=== PATIENT | male | born 1995 | race Caucasian/White ===

== ENCOUNTER → 2016-09-28 | Outpatient (CLI) | payer MEDICAID ==
[2016-09-28 10:14] LABS: HEMATOCRIT 40.4 % (37.9-51.0); HEMOGLOBIN 13.5 g/dL (13.5-17.0); HGB HCT DIFFERENCE 0.1; MEAN CORPUSCULAR HEMOGLOBIN 28.6 pg (27.0-33.4); MEAN CORPUSCULAR HGB CONC 33.5 g/dL (32.0-36.0); MEAN CORPUSCULAR VOLUME 85 fl (80-97); RED BLOOD COUNT 4.74 10^6/uL (4.35-5.55); RED CELL DISTRIBUTION WIDTH 13.7 % (11.5-14.0)
[2016-09-28 10:47] LABS: ALANINE AMINOTRANSFERASE 40 U/L (21-72); ALBUMIN 4.9 g/dL (3.5-5.0); ALKALINE PHOSPHATASE 80 U/L (38-126); ASPARTATE AMINO TRANSFERASE 23 U/L (17-59); CHOLESTEROL 158.93 mg/dL (0-200); Direct HDL 40 mg/dL (>40); GLUCOSE 77 mg/dL (75-110); TOTAL PROTEIN 7.7 g/dL (6.3-8.2); TRIGLYCERIDES 99 mg/dL (<150)
[2016-09-28 10:58] LABS: DIRECT LDL 100 mg/dL (<100); VALPROIC ACID 17.9 ug/mL (50.0-120.0)
== END ==
LOC: OD 09:22
PROVIDERS: ATTEND Psychiatry & Neurology Psychiatry
DX: F20.9 Schizophrenia, unspecified (principal); Z79.899 Other long term (current) drug therapy
CPT/HCPCS: 36415; 80061; 80076; 80164; 82947; 83036; 85027

== ENCOUNTER → 2016-10-26 | Outpatient (CLI) | payer MEDICAID | LOC: OD 09:20 | PROVIDERS: ATTEND Psychiatry & Neurology Psychiatry | DX: F20.9 Schizophrenia, unspecified (principal); Z79.899 Other long term (current) drug therapy | CPT/HCPCS: 36415; 80164 ==

== ENCOUNTER → 2016-11-14 | Outpatient (CLI) | payer MEDICAID | LOC: OD 09:41 | PROVIDERS: ATTEND Psychiatry & Neurology Psychiatry | DX: F20.9 Schizophrenia, unspecified (principal); Z79.899 Other long term (current) drug therapy | CPT/HCPCS: 36415; 80164 ==

== ENCOUNTER 2016-12-03 19:49 | Emergency (ER) | payer MEDICAID ==
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
[2016-12-03 21:09] LABS: ABSOLUTE EOSINOPHILS # (AUTO) 0.1 10^3/uL (0.0-0.6); ABSOLUTE LYMPHOCYTES (AUTO) 1.6 10^3/uL (0.5-4.7); ABSOLUTE MONOCYTES (AUTO) 0.8 10^3/uL (0.1-1.4); ABSOLUTE NEUT (AUTO) 6.1 10^3/uL (1.7-8.2); BASOPHILS % (AUTO) 0.4 % (0-2); EOSINOPHILS % (AUTO) 1.7 % (0-6); HEMATOCRIT 38.7 % (37.9-51.0); HEMOGLOBIN 13.4 g/dL (13.5-17.0); HGB HCT DIFFERENCE 1.5; LYMPHOCYTES % (AUTO) 18.2 % (13-45); MEAN CORPUSCULAR HEMOGLOBIN 29.7 pg (27.0-33.4); MEAN CORPUSCULAR HGB CONC 34.7 g/dL (32.0-36.0); MEAN CORPUSCULAR VOLUME 86 fl (80-97); MONOCYTES % (AUTO) 9.5 % (3-13); RED BLOOD COUNT 4.52 10^6/uL (4.35-5.55); RED CELL DISTRIBUTION WIDTH 13.8 % (11.5-14.0); SEGMENTED NEUTROPHILS % (AUTO) 70.2 % (42-78); WHITE BLOOD COUNT 8.7 10^3/uL (4.0-10.5)
[2016-12-03 21:27] LABS: ALANINE AMINOTRANSFERASE 39 U/L (21-72); ALBUMIN 4.5 g/dL (3.5-5.0); ALCOHOL < 10 mg/dL (NONE DETECTED); ALKALINE PHOSPHATASE 71 U/L (38-126); ANION GAP 15 (5-19); ASPARTATE AMINO TRANSFERASE 22 U/L (17-59); BILIRUBIN,DIRECT 0.2 mg/dL (0.0-0.4); BILIRUBIN,TOTAL 0.6 mg/dL (0.2-1.3); BLOOD UREA NITROGEN 13 mg/dL (7-20); CALCIUM 9.5 mg/dL (8.4-10.2); CARBON DIOXIDE 26 mmol/L (22-30); CHLORIDE 96 mmol/L (98-107); CREATININE RESULT 0.79 mg/dL (0.52-1.25); GLUCOSE 107 mg/dL (75-110); POTASSIUM 4.1 mmol/L (3.6-5.0); SODIUM 136.6 mmol/L (137-145); TOTAL PROTEIN 7.5 g/dL (6.3-8.2)
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
[2016-12-04 02:59] LABS: APPEARANCE,URINE CLEAR; BILIRUBIN,URINE NEGATIVE (NEGATIVE); GLUCOSE, URINE NEGATIVE (NEGATIVE); KETONES,URINE NEGATIVE (NEGATIVE); LEUKOCYTE ESTERASE,URINE NEGATIVE (NEGATIVE); NITRITE,URINE NEGATIVE (NEGATIVE); PROTEIN,URINE NEGATIVE (NEGATIVE); URINE SPECIFIC GRAVITY 1.003; UROBILINOGEN,URINE NEGATIVE mg/dL (<2.0)
[2016-12-04 03:20] LABS: URINE BARBITURATES SCREEN NEGATIVE; URINE METHADONE SCREEN NEGATIVE; URINE OPIATES LOW NEGATIVE; URINE PHENCYCLIDINE SCREEN NEGATIVE
[2016-12-04] MEDS ORDERED: IBUPROFEN 400 MG TABLET PO ONE (03:20)
[2016-12-04] MEDS ORDERED: ALPRAZOLAM 0.25 MG TABLET PO ONE (03:23)
[2016-12-04] MEDS ORDERED: LANSOPRAZOLE 30 MG TAB.RAP.DR PO PRN (04:39)
[2016-12-04] MEDS ORDERED: LOPERAMIDE HCL 2 MG CAPSULE PO PRN (04:41)
--- NOTE | 2016-12-04 09:34 | EKG REPORT ---
SEVERITY:- NORMAL ECG - SINUS RHYTHM : Confirmed by: Becak Billingsley 04-Dec-2016 09:33:31
[2016-12-04] MEDS ORDERED: ALPRAZOLAM 0.25 MG TABLET PO SCH (10:00)
[2016-12-04] MEDS ORDERED: BENZTROPINE MESYLATE 1 MG TABLET PO SCH ×3 (10:00→22:00)
[2016-12-04] MEDS: METOPROLOL SUCCINATE 50 MG TAB.SR.24H PO SCH (10:29)
[2016-12-04] MEDS: LISINOPRIL 10 MG TABLET PO SCH (10:30)
[2016-12-04] MEDS: FUROSEMIDE 20 MG TABLET PO SCH (10:30)
[2016-12-04] MEDS: ARIPIPRAZOLE 5 MG TABLET PO SCH (10:31)
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
[2016-12-04] MEDS ORDERED: CHLORPROMAZINE HCL 50 MG TABLET PO SCH ×2 (13:00→22:00)
[2016-12-04] MEDS ORDERED: CHLORPROMAZINE HCL 50 MG TABLET PO ONE (13:30)
[2016-12-04] MEDS: ZIPRASIDONE MESYLATE INJ/PF 20 MG SDV IM PRN ×2 (14:53→21:17)
[2016-12-04] MEDS ORDERED: DIVALPROEX SODIUM 500 MG TAB.SR.24H PO SCH (18:00)
[2016-12-04] MEDS ORDERED: ATORVASTATIN CALCIUM 40 MG TABLET PO SCH (22:00)
[2016-12-05] MEDS ORDERED: TOPIRAMATE 100 MG TABLET PO SCH ×2 (07:00→08:00)
[2016-12-05] MEDS ORDERED: HALOPERIDOL 5 MG TABLET PO SCH ×2 (07:00→22:00)
[2016-12-05] MEDS ORDERED: DIVALPROEX SODIUM 500 MG TAB.SR.24H PO SCH (08:00)
[2016-12-05] MEDS ORDERED: HALOPERIDOL 5 MG TABLET PO ONE (08:30)
[2016-12-05] MEDS: ARIPIPRAZOLE 5 MG TABLET PO SCH (10:53)
[2016-12-05] MEDS: LISINOPRIL 10 MG TABLET PO SCH (10:54)
[2016-12-05] MEDS: METOPROLOL SUCCINATE 50 MG TAB.SR.24H PO SCH (10:54)
[2016-12-05] MEDS: FUROSEMIDE 20 MG TABLET PO SCH (10:55)
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
[2016-12-05] MEDS ORDERED: BENZTROPINE MESYLATE 1 MG TABLET PO ONE (11:45)
[2016-12-05 15:11] VITALS: BP 104/61
[2016-12-05] MEDS ORDERED: BENZTROPINE MESYLATE 1 MG TABLET PO SCH (22:00)
== END 2016-12-05 15:54 | disposition other institution (70) ==
LOC: ER 19:49
DX: F20.9 Schizophrenia, unspecified (principal); Q79.6 Ehlers-Danlos syndromes; Q87.3 Congenital malformation syndromes involving early overgrowth; F91.1 Conduct disorder, childhood-onset type; F22 Delusional disorders; I25.10 Atherosclerotic heart disease of native coronary artery without angina pectoris; I10 Essential (primary) hypertension; R62.50 Unspecified lack of expected normal physiological development in childhood
CPT/HCPCS: 93005; 99285; 96372; 36415; 80307 ×4; 85025; 80053; 81001; 80164; 93010; J3490 ×8

== ENCOUNTER → 2016-12-12 | Outpatient (CLI) | payer OTHER ==
[2016-12-12 10:16] LABS: ALANINE AMINOTRANSFERASE 53 U/L (21-72); ALBUMIN 4.6 g/dL (3.5-5.0); ALKALINE PHOSPHATASE 65 U/L (38-126); ANION GAP 14 (5-19); ASPARTATE AMINO TRANSFERASE 24 U/L (17-59); BILIRUBIN,DIRECT 0.1 mg/dL (0.0-0.4); BILIRUBIN,TOTAL 0.7 mg/dL (0.2-1.3); BLOOD UREA NITROGEN 13 mg/dL (7-20); CALCIUM 9.4 mg/dL (8.4-10.2); CARBON DIOXIDE 26 mmol/L (22-30); CHLORIDE 102 mmol/L (98-107); CREATININE RESULT 0.78 mg/dL (0.52-1.25); GLUCOSE 88 mg/dL (75-110); POTASSIUM 4.6 mmol/L (3.6-5.0); SODIUM 141.8 mmol/L (137-145); TOTAL PROTEIN 7.9 g/dL (6.3-8.2)
[2016-12-12 10:21] LABS: VALPROIC ACID 56.8 ug/mL (50.0-120.0)
== END ==
LOC: OD 09:07
PROVIDERS: ATTEND Nurse Practitioner Psychiatric/Mental Health
DX: F20.9 Schizophrenia, unspecified (principal); Z79.899 Other long term (current) drug therapy
CPT/HCPCS: 36415; 80053; 80164

== ENCOUNTER → 2017-01-07 | Outpatient (CLI) | payer MEDICAID | LOC: OD 09:50 | PROVIDERS: ATTEND Psychiatry & Neurology Psychiatry | DX: F20.9 Schizophrenia, unspecified (principal); Z79.899 Other long term (current) drug therapy | CPT/HCPCS: 36415; 80164 ==

== ENCOUNTER 2017-03-11 19:47 | Emergency (ER) | payer MEDICAID ==
[2017-03-11] MEDS ORDERED: LORAZEPAM 1 MG TABLET PO ONE (20:38)
[2017-03-11] MEDS ORDERED: DIPHENHYDRAMINE HCL 50 MG CAPSULE PO ONE (20:38)
[2017-03-11] MEDS ORDERED: HALOPERIDOL 5 MG TABLET PO ONE (20:38)
[2017-03-11] MEDS ORDERED: DIVALPROEX SODIUM 500 MG TAB.SR.24H PO ONE (20:39)
[2017-03-11] MEDS ORDERED: BENZTROPINE MESYLATE 1 MG TABLET PO ONE (20:39)
[2017-03-11] MEDS ORDERED: ACETAMINOPHEN 325 MG TABLET PO ONE (20:39)
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
[2017-03-11 20:51] LABS: ABSOLUTE EOSINOPHILS # (AUTO) 0.1 10^3/uL (0.0-0.6); ABSOLUTE LYMPHOCYTES (AUTO) 1.2 10^3/uL (0.5-4.7); ABSOLUTE MONOCYTES (AUTO) 0.7 10^3/uL (0.1-1.4); ABSOLUTE NEUT (AUTO) 5.2 10^3/uL (1.7-8.2); BASOPHILS % (AUTO) 0.4 % (0-2); EOSINOPHILS % (AUTO) 1.1 % (0-6); HEMOGLOBIN 13.7 g/dL (13.5-17.0); HGB HCT DIFFERENCE 1.1; MEAN CORPUSCULAR HEMOGLOBIN 29.8 pg (27.0-33.4); MEAN CORPUSCULAR HGB CONC 34.2 g/dL (32.0-36.0); MEAN CORPUSCULAR VOLUME 87 fl (80-97); MONOCYTES % (AUTO) 10.2 % (3-13); RED BLOOD COUNT 4.59 10^6/uL (4.35-5.55); RED CELL DISTRIBUTION WIDTH 14.3 % (11.5-14.0); SEGMENTED NEUTROPHILS % (AUTO) 71.3 % (42-78); WHITE BLOOD COUNT 7.3 10^3/uL (4.0-10.5)
[2017-03-11 21:03] LABS: ALANINE AMINOTRANSFERASE 41 U/L (21-72); ALBUMIN 4.6 g/dL (3.5-5.0); ALKALINE PHOSPHATASE 65 U/L (38-126); ANION GAP 13 (5-19); ASPARTATE AMINO TRANSFERASE 21 U/L (17-59); BILIRUBIN,DIRECT 0.3 mg/dL (0.0-0.4); BILIRUBIN,TOTAL 0.8 mg/dL (0.2-1.3); BLOOD UREA NITROGEN 12 mg/dL (7-20); CALCIUM 9.1 mg/dL (8.4-10.2); CARBON DIOXIDE 25 mmol/L (22-30); CHLORIDE 96 mmol/L (98-107); CREATININE RESULT 0.73 mg/dL (0.52-1.25); GLUCOSE 93 mg/dL (75-110); POTASSIUM 4.4 mmol/L (3.6-5.0); SODIUM 134.3 mmol/L (137-145)
[2017-03-11 21:08] LABS: VALPROIC ACID 69.2 ug/mL (50.0-120.0)
[2017-03-11 21:09] LABS: ALCOHOL < 10 mg/dL (NONE DETECTED)
--- NOTE | 2017-03-11 21:35 | RADIOLOGY REPORT (SQ) ---
EXAM DESCRIPTION: L SPINE WHOLE COMPLETED DATE/TIME: 03/11/2017 9:16 pm REASON FOR STUDY: fall with back pain COMPARISON: None. NUMBER OF VIEWS: Five views including obliques. TECHNIQUE: AP, lateral, oblique, and sacral radiographic images acquired of the lumbar spine. LIMITATIONS: None. FINDINGS: MINERALIZATION: Normal. SEGMENTATION: Normal. No transitional anatomy. ALIGNMENT: Normal. VERTEBRAE: Maintained height. No fracture or worrisome bone lesion. DISCS: Preserved height. No significant osteophytes or end plate irregularity. POSTERIOR ELEMENTS: Pedicles and facets are intact. No pars defect or posterior arch defects. HARDWARE: None in the spine. PARASPINAL SOFT TISSUES: Normal. PELVIS: Intact as visualized. No fractures or worrisome bone lesions. SI joints intact. OTHER: No other significant finding. IMPRESSION: No acute fracture or traumatic subluxation of the lumbar spine. TECHNICAL DOCUMENTATION: JOB ID: [id number] [employer]- All Rights Reserved
[2017-03-12 05:35] LABS: APPEARANCE,URINE CLEAR; BILIRUBIN,URINE NEGATIVE (NEGATIVE); GLUCOSE, URINE NEGATIVE (NEGATIVE); KETONES,URINE NEGATIVE (NEGATIVE); LEUKOCYTE ESTERASE,URINE NEGATIVE (NEGATIVE); NITRITE,URINE NEGATIVE (NEGATIVE); PROTEIN,URINE NEGATIVE (NEGATIVE); URINE SPECIFIC GRAVITY 1.006
[2017-03-12 05:53] LABS: URINE BARBITURATES SCREEN NEGATIVE; URINE METHADONE SCREEN NEGATIVE; URINE OPIATES LOW NEGATIVE; URINE PHENCYCLIDINE SCREEN NEGATIVE
[2017-03-12] MEDS ORDERED: CETIRIZINE 10 MG TABLET PO PRN (06:02)
[2017-03-12] MEDS ORDERED: METFORMIN HCL 500 MG TABLET PO SCH (08:00)
--- NOTE | 2017-03-12 09:18 | ER Document Report ---
Doctor's Note Notes: 03/12/17 09:18 I have evaluated this patient this am and has no c/o at this time. Feels all of their needs are being met and physical exam is normal. Awaiting dispositon per mental health. 03/12/17 13:27 Pt seen and evaluated by mental health. They are recommending increasing his Haldol from twice a day to 3 times a day. Will provide him with a 7 day prescription. Patient is not suicidal or homicidal. Will discharge him back to the [facility] with follow-up at [facility] this week. Given strict return precautions and he understands.
[2017-03-12] MEDS ORDERED: LISINOPRIL 10 MG TABLET PO SCH (10:00)
[2017-03-12] MEDS ORDERED: METOPROLOL SUCCINATE 50 MG TAB.SR.24H PO SCH (10:00)
[2017-03-12] MEDS ORDERED: HALOPERIDOL 5 MG TABLET PO SCH (10:00)
[2017-03-12] MEDS ORDERED: FUROSEMIDE 20 MG TABLET PO SCH (10:00)
[2017-03-12] MEDS ORDERED: BENZTROPINE MESYLATE 1 MG TABLET PO SCH (10:00)
[2017-03-12] MEDS ORDERED: DIVALPROEX SODIUM 500 MG TAB.SR.24H PO SCH ×2 (10:00→22:00)
[2017-03-12] MEDS ORDERED: IBUPROFEN 600 MG TABLET PO PRN (10:05)
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
[2017-03-12 13:38] VITALS: BP 95/70
== END 2017-03-12 13:38 | disposition home or self-care (01) ==
LOC: ER 19:47
DX: R62.50 Unspecified lack of expected normal physiological development in childhood (principal); F20.9 Schizophrenia, unspecified; F32.9 Major depressive disorder, single episode, unspecified; I25.10 Atherosclerotic heart disease of native coronary artery without angina pectoris; I10 Essential (primary) hypertension
CPT/HCPCS: 99284; 36415; 80307 ×2; 85025; 80053; 81001; 80164; 72110; J3490 ×12

== ENCOUNTER → 2017-05-15 | Outpatient (CLI) | payer MEDICAID | LOC: OD 10:45 | PROVIDERS: ATTEND Psychiatry & Neurology Psychiatry | DX: F20.9 Schizophrenia, unspecified (principal); Z79.899 Other long term (current) drug therapy | CPT/HCPCS: 36415; 80164 ==

== ENCOUNTER → 2017-10-24 | Outpatient (CLI) | payer MEDICAID ==
[2017-10-24 10:02] LABS: ABSOLUTE EOSINOPHILS # (AUTO) 0.1 10^3/uL (0.0-0.6); ABSOLUTE LYMPHOCYTES (AUTO) 0.9 10^3/uL (0.5-4.7); ABSOLUTE MONOCYTES (AUTO) 0.4 10^3/uL (0.1-1.4); ABSOLUTE NEUT (AUTO) 2.2 10^3/uL (1.7-8.2); BASOPHILS % (AUTO) 0.4 % (0-2); EOSINOPHILS % (AUTO) 3.3 % (0-6); HEMATOCRIT 36.1 % (37.9-51.0); HEMOGLOBIN 12.8 g/dL (13.5-17.0); LYMPHOCYTES % (AUTO) 24.5 % (13-45); MEAN CORPUSCULAR HEMOGLOBIN 31.7 pg (27.0-33.4); MEAN CORPUSCULAR HGB CONC 35.4 g/dL (32.0-36.0); MEAN CORPUSCULAR VOLUME 90 fl (80-97); PLATELET COUNT 202 10^3/uL (150-450); RED BLOOD COUNT 4.04 10^6/uL (4.35-5.55); RED CELL DISTRIBUTION WIDTH 13.3 % (11.5-14.0); SEGMENTED NEUTROPHILS % (AUTO) 59.8 % (42-78); TOTAL CELLS COUNTED % (AUTO) 100 %; WHITE BLOOD COUNT 3.6 10^3/uL (4.0-10.5)
[2017-10-24 10:25] LABS: ALANINE AMINOTRANSFERASE 30 U/L (21-72); ALBUMIN 4.3 g/dL (3.5-5.0); ALKALINE PHOSPHATASE 47 U/L (38-126); ANION GAP 10 (5-19); ASPARTATE AMINO TRANSFERASE 17 U/L (17-59); BILIRUBIN,DIRECT 0.2 mg/dL (0.0-0.4); BILIRUBIN,TOTAL 0.4 mg/dL (0.2-1.3); BLOOD UREA NITROGEN 10 mg/dL (7-20); CALCIUM 9.3 mg/dL (8.4-10.2); CARBON DIOXIDE 29 mmol/L (22-30); CHLORIDE 97 mmol/L (98-107); CHOLESTEROL 129.89 mg/dL (0-200); GLUCOSE 93 mg/dL (75-110); POTASSIUM 4.9 mmol/L (3.6-5.0); SODIUM 136.1 mmol/L (137-145); TOTAL PROTEIN 6.7 g/dL (6.3-8.2); TRIGLYCERIDES 87 mg/dL (<150)
[2017-10-24 10:36] LABS: DIRECT LDL 66 mg/dL (<100)
== END ==
LOC: OD 09:09
PROVIDERS: ATTEND Psychiatry & Neurology Psychiatry
DX: F20.9 Schizophrenia, unspecified (principal)
CPT/HCPCS: 36415; 80053; 80061; 80164; 83036; 84443; 85025

== ENCOUNTER 2018-01-07 12:26 | Emergency (ER) | payer MEDICAID ==
--- NOTE | 2018-01-07 13:00 | ER Document Report ---
ED Medical Screen (RME) - General Chief Complaint: Suicidal Ideation Stated Complaint: IVC W/PAPERS Time Seen by Provider: 01/07/18 12:48 Notes: Patient is a 22-year-old male, past medical history schizophrenia, developmental delay, Shazia-Danlos syndrome, Peres syndrome, presents on an IVC from his psychologist's office after he was expressing increased suicidal thoughts. He also had a plan, but he will not expound on this plan. PE: Cooperative, denies SI to myself, RRR, CTAB. I have greeted and performed a rapid initial assessment of this patient. A comprehensive ED assessment and evaluation of the patient, analysis of test results and completion of the medical decision making process will be conducted by additional ED providers. TRAVEL OUTSIDE OF THE [place] IN LAST 30 DAYS: No - Related Data Allergies/Adverse Reactions: No Known Allergies Allergy (Verified 01/07/18 12:27) Past Medical History - Past Medical History Cardiac Medical History: Reports: Hx Coronary Artery Disease - HTN, Hx Hypertension Denies: Hx Heart Attack Pulmonary Medical History: Denies: Hx Asthma, Hx Bronchitis, Hx COPD, Hx Pneumonia Neurological Medical History: Reports: Hx Seizures - AN INFANT . Denies: Hx Cerebrovascular Accident Renal/ Medical History: Denies: Hx Peritoneal Dialysis Musculoskeltal Medical History: Denies Hx Arthritis Psychiatric Medical History: Reports: Hx Schizophrenia - Immunizations Hx Diphtheria, Pertussis, Tetanus Vaccination: Yes Physical Exam - Vital signs Vitals: Temp Pulse Resp BP Pulse Ox 97.7 F 77 18 103/69 98 01/07/18 12:28 01/07/18 12:28 01/07/18 12:28 01/07/18 12:28 01/07/18 12:28 Course - Vital Signs Vital signs: Temp Pulse Resp BP Pulse Ox 97.7 F 77 18 103/69 98 01/07/18 12:28 01/07/18 12:28 01/07/18 12:28 01/07/18 12:28 01/07/18 12:28
[2018-01-07 13:21] LABS: ABSOLUTE EOSINOPHILS # (AUTO) 0.1 10^3/uL (0.0-0.6); ABSOLUTE LYMPHOCYTES (AUTO) 1.4 10^3/uL (0.5-4.7); ABSOLUTE MONOCYTES (AUTO) 0.6 10^3/uL (0.1-1.4); ABSOLUTE NEUT (AUTO) 2.6 10^3/uL (1.7-8.2); BASOPHILS % (AUTO) 0.4 % (0-2); HEMATOCRIT 39.9 % (37.9-51.0); HEMOGLOBIN 13.7 g/dL (13.5-17.0); LYMPHOCYTES % (AUTO) 29.4 % (13-45); MEAN CORPUSCULAR HEMOGLOBIN 31.2 pg (27.0-33.4); MEAN CORPUSCULAR HGB CONC 34.3 g/dL (32.0-36.0); MEAN CORPUSCULAR VOLUME 91 fl (80-97); MONOCYTES % (AUTO) 12.6 % (3-13); PLATELET COUNT 171 10^3/uL (150-450); RED CELL DISTRIBUTION WIDTH 13.2 % (11.5-14.0); SEGMENTED NEUTROPHILS % (AUTO) 55.6 % (42-78); TOTAL CELLS COUNTED % (AUTO) 100 %; WHITE BLOOD COUNT 4.7 10^3/uL (4.0-10.5)
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
[2018-01-07 13:45] LABS: ALANINE AMINOTRANSFERASE 60 U/L (21-72); ALBUMIN 4.4 g/dL (3.5-5.0); ALKALINE PHOSPHATASE 44 U/L (38-126); ANION GAP 9 (5-19); ASPARTATE AMINO TRANSFERASE 28 U/L (17-59); BILIRUBIN,DIRECT 0.2 mg/dL (0.0-0.4); BILIRUBIN,TOTAL 0.4 mg/dL (0.2-1.3); BLOOD UREA NITROGEN 14 mg/dL (7-20); CALCIUM 9.5 mg/dL (8.4-10.2); CARBON DIOXIDE 33 mmol/L (22-30); CHLORIDE 99 mmol/L (98-107); GLUCOSE 86 mg/dL (75-110); POTASSIUM 4.8 mmol/L (3.6-5.0); SODIUM 141.3 mmol/L (137-145); TOTAL PROTEIN 7.3 g/dL (6.3-8.2)
[2018-01-07 13:48] LABS: ACETAMINOPHEN < 10 ug/mL (10-30); ALCOHOL < 10 mg/dL (NONE DETECTED); SALICYLATE < 1.0 mg/dL (2.0-20.0)
--- NOTE | 2018-01-07 14:29 | EKG REPORT ---
SEVERITY:- ABNORMAL ECG - SINUS RHYTHM INCOMPLETE RIGHT BUNDLE BRANCH BLOCK : Confirmed by: Becka Billingsley 07-Jan-2018 14:28:59
[2018-01-07 15:40] LABS: APPEARANCE,URINE CLEAR; BILIRUBIN,URINE NEGATIVE (NEGATIVE); COLOR,URINE YELLOW; GLUCOSE, URINE NEGATIVE (NEGATIVE); KETONES,URINE NEGATIVE (NEGATIVE); LEUKOCYTE ESTERASE,URINE NEGATIVE (NEGATIVE); NITRITE,URINE NEGATIVE (NEGATIVE); PROTEIN,URINE NEGATIVE (NEGATIVE); URINE SPECIFIC GRAVITY 1.011
[2018-01-07 15:55] LABS: URINE AMPHETAMINES SCREEN NEGATIVE; URINE BARBITURATES SCREEN NEGATIVE; URINE BENZODIAZEPINES SCREEN NEGATIVE; URINE COCAINE SCREEN NEGATIVE; URINE MARIJUANA (THC) SCREEN NEGATIVE; URINE METHADONE SCREEN NEGATIVE; URINE PHENCYCLIDINE SCREEN NEGATIVE
[2018-01-07 18:46] VITALS: BP 115/69
== END 2018-01-07 18:46 | disposition home or self-care (01) ==
LOC: ER 12:26
DX: Z04.6 Encounter for general psychiatric examination, requested by authority (principal); F22 Delusional disorders; R45.851 Suicidal ideations; I10 Essential (primary) hypertension; I25.10 Atherosclerotic heart disease of native coronary artery without angina pectoris
CPT/HCPCS: 36415; 80053; 80307; 81001; 85025; 93005; 93010; 99285

== ENCOUNTER → 2019-02-23 | Outpatient (CLI) | payer MEDICAID ==
[2019-02-23 11:38] LABS: ABSOLUTE EOSINOPHILS # (AUTO) 0.1 10^3/uL (0.0-0.6); ABSOLUTE LYMPHOCYTES (AUTO) 0.9 10^3/uL (0.5-4.7); ABSOLUTE MONOCYTES (AUTO) 0.4 10^3/uL (0.1-1.4); ABSOLUTE NEUT (AUTO) 2.1 10^3/uL (1.7-8.2); BASOPHILS % (AUTO) 0.4 % (0-2); EOSINOPHILS % (AUTO) 1.5 % (0-6); HEMATOCRIT 32.6 % (37.9-51.0); HEMOGLOBIN 11.6 g/dL (13.5-17.0); LYMPHOCYTES % (AUTO) 25.8 % (13-45); MEAN CORPUSCULAR HEMOGLOBIN 30.7 pg (27.0-33.4); MEAN CORPUSCULAR HGB CONC 35.5 g/dL (32.0-36.0); MEAN CORPUSCULAR VOLUME 86 fl (80-97); MONOCYTES % (AUTO) 12.3 % (3-13); PLATELET COUNT 196 10^3/uL (150-450); RED BLOOD COUNT 3.77 10^6/uL (4.35-5.55); RED CELL DISTRIBUTION WIDTH 13.6 % (11.5-14.0); TOTAL CELLS COUNTED % (AUTO) 100 %; WHITE BLOOD COUNT 3.5 10^3/uL (4.0-10.5)
[2019-02-23 12:03] LABS: ALANINE AMINOTRANSFERASE 24 U/L (21-72); ALKALINE PHOSPHATASE 44 U/L (38-126); ANION GAP 12 (5-19); ASPARTATE AMINO TRANSFERASE 15 U/L (17-59); BILIRUBIN,DIRECT 0.2 mg/dL (0.0-0.4); BILIRUBIN,TOTAL 0.7 mg/dL (0.2-1.3); BLOOD UREA NITROGEN 9 mg/dL (7-20); CALCIUM 9.1 mg/dL (8.4-10.2); CARBON DIOXIDE 27 mmol/L (22-30); CHLORIDE 89 mmol/L (98-107); CHOLESTEROL 113.01 mg/dL (0-200); GLUCOSE 80 mg/dL (75-110); IRON 107.1 ug/dL (49-181); POTASSIUM 4.5 mmol/L (3.6-5.0); SODIUM 127.7 mmol/L (137-145); TOTAL PROTEIN 6.7 g/dL (6.3-8.2); TRIGLYCERIDES 75 mg/dL (<150)
[2019-02-23 12:14] LABS: DIRECT LDL 63 mg/dL (<100)
== END ==
LOC: OD 10:34
PROVIDERS: ATTEND Family Medicine
DX: E78.5 Hyperlipidemia, unspecified (principal); I10 Essential (primary) hypertension; R32 Unspecified urinary incontinence; R73.9 Hyperglycemia, unspecified; E66.01 Morbid (severe) obesity due to excess calories; Z68.41 Body mass index [BMI] 40.0-44.9, adult
CPT/HCPCS: 36415; 80053; 80061; 82306; 82607; 83036; 83540; 84443; 85025

== ENCOUNTER → 2020-03-21 | Outpatient (CLI) | payer MEDICAID ==
[2020-03-21 09:46] LABS: ABSOLUTE EOSINOPHILS # (AUTO) 0.1 10^3/uL (0.0-0.6); ABSOLUTE MONOCYTES (AUTO) 0.6 10^3/uL (0.1-1.4); BASOPHILS % (AUTO) 0.5 % (0-2); EOSINOPHILS % (AUTO) 2.6 % (0-6); HEMATOCRIT 33.9 % (37.9-51.0); HEMOGLOBIN 11.7 g/dL (13.5-17.0); LYMPHOCYTES % (AUTO) 20.6 % (13-45); MEAN CORPUSCULAR HEMOGLOBIN 29.8 pg (27.0-33.4); MEAN CORPUSCULAR HGB CONC 34.6 g/dL (32.0-36.0); MEAN CORPUSCULAR VOLUME 86 fl (80-97); MONOCYTES % (AUTO) 12.3 % (3-13); PLATELET COUNT 194 10^3/uL (150-450); RED BLOOD COUNT 3.93 10^6/uL (4.35-5.55); RED CELL DISTRIBUTION WIDTH 14.8 % (11.5-14.0); TOTAL CELLS COUNTED % (AUTO) 100 %; WHITE BLOOD COUNT 4.7 10^3/uL (4.0-10.5)
[2020-03-21 10:05] LABS: ALBUMIN 4.2 g/dL (3.5-5.0); ALKALINE PHOSPHATASE 63 U/L (38-126); ANION GAP 10 (5-19); ASPARTATE AMINO TRANSFERASE 16 U/L (17-59); BILIRUBIN,DIRECT 0.1 mg/dL (0.0-0.4); BILIRUBIN,TOTAL 0.5 mg/dL (0.2-1.3); BLOOD UREA NITROGEN 13 mg/dL (7-20); CARBON DIOXIDE 30 mmol/L (22-30); CHLORIDE 97 mmol/L (98-107); CHOLESTEROL 136.38 mg/dL (0-200); GLUCOSE 111 mg/dL (75-110); POTASSIUM 4.1 mmol/L (3.6-5.0); TOTAL PROTEIN 7.4 g/dL (6.3-8.2); TRIGLYCERIDES 144 mg/dL (<150)
[2020-03-21 10:16] LABS: DIRECT LDL 79 mg/dL (<100)
== END ==
LOC: OD 08:45
PROVIDERS: ATTEND Physician Assistant
DX: F20.9 Schizophrenia, unspecified (principal); Z79.899 Other long term (current) drug therapy
CPT/HCPCS: 36415; 80053; 80061; 80164; 83036; 85025